=== PATIENT | female | born 1950 | race Caucasian/White ===

== ENCOUNTER 2016-07-12 06:01 | Emergency (ER) ==
--- NOTE | 2016-07-12 06:38 | PROVIDER DOCUMENTATION ---
HPI-General Adult - General Chief Complaint: Fall Stated Complaint: @0525 FALL/ FAINTED Time Seen by Provider: 07/12/16 06:16 Source: patient, family Allergies/Adverse Reactions: Patient Allergies Allergy/AdvReac Type Severity Reaction Status Date / Time Sulfa (Sulfonamide Allergy Mild RASH Verified 07/12/16 06:53 Antibiotics) Home Medications: Home Medication List Medication Instructions Recorded Confirmed Last Taken Type Hydrocodone/Acetaminophen [[place] 1 each PO Q6H PRN #20 tablet 07/12/16 Unknown Rx 5-325 Tablet] - History of Present Illness -Gen Adult Nature of Presenting Problems: states got up to take a shower this morning and felt weak and lightheaded then woke up on the floor of the tub. was home and she did not lay in the tub for long. states now with ankle pain only pt with loc pt has history of breast cancer is on meds and has completed surgery and chemo. diagnosed 3 years ago. pt also states she recently has had some sinus problems congestion cough malaise and thinks that may have contributed to it. pt is self medicating and taking benadryl for it she is not on abx and has not any fevers her pmd is dr rogers Location of Pain/Injury: reports: lower extremity Pain Radiation: reports: no radiation Quality of Pain: reports: aching Severity: reports: moderate Onset/Duration: reports: just prior to arrival Timing: reports: still present Modifying Factors: improves with: analgesics Associated Symptoms: reports: malaise, sinus congestion/drainage, syncope. denies: vomiting Similar Symptoms Previously?: No Recently seen or treated by another doctor?: No Review of Systems - Adult - REVIEW OF SYSTEMS - ADULT Constitutional: reports: see HPI Eyes: reports: no symptoms reported Ears, Nose, Mouth & Throat: reports: see HPI Cardiovascular: reports: syncope Respiratory: reports: cough. denies: excessive sputum production, shortness of breath Gastrointestinal: reports: no symptoms reported Genitourinary: reports: no symptoms reported Musculoskeletal: reports: other (ankle pain and swellling since fall this morning) Integumentary: reports: other (echymosis on left ankle) Neurological: reports: see HPI, syncope. denies: dizziness/vertigo, headache/ migraines, loss of balance, numbness, slurred speech Psychiatric: reports: no symptoms reported Endocrine: reports: no symptoms reported Hematologic/Lymphatic: reports: see HPI, other (h/o breast cancer) Allergic/Immunologic: reports: see HPI, other (sinus congestion) All Other Systems: Reviewed and Negative Past History - Adult - PAST MEDICAL HISTORY-ADULT Review of Records: reports: Old Records Reviewed, Nursing Assessment Review, Medications Reviewed Major Childhood Illnesses: reports: denies history Cardiovascular: reports: denies history Respiratory: reports: denies history Gastrointestinal: reports: denies history Musculoskeletal: reports: denies history Psychiatric: reports: denies history Endocrine/Immune: reports: denies history Other Conditions: reports: other cancer (breast) - PRIOR SURGERIES/PROCEDURES Surgical/Procedure History: reports: other (mastectomy) - FAMILY HISTORY Family History: reviewed, not pertinent - SOCIAL HISTORY Smoking: denies Alcohol Use Frequency: never Living Situation: family Physical Exam-General - PHYSICAL EXAM-ADULT Initial Vital Signs Reviewed: Yes - CONSTITUTIONAL General Appearance: appears well, alert, no apparent distress - EYES Eyes: PERRL/EOMI - HEAD, EARS, NOSE, MOUTH & THROAT HENMT: moist mucous membranes, normal ENT inspection, pharynx normal (small early echymotic area on right forehead nontender no swelling) - NECK Neck: non-tender, full range of motion, supple, normal inspection - RESPIRATORY Respiratory: chest non-tender, lungs clear, normal breath sounds, no pleuratic chest pain, no respiratory distress, no accessory muscle use - CARDIOVASCULAR Cardiovascular: normal peripheral pulses, regular rate, rhythm, no edema - GASTROINTESTINAL (ABDOMEN) Abdominal Exam: soft - LYMPHATIC Lymphatic: no adenopathy - MUSCULOSKELETAL Back Exam: normal inspection Extremity: tenderness (left medial malleolus pulses symmetrical stable ligaments cap refill less than 2 seconds distally) - SKIN Integumentary: normal color, normal turgor, warm/dry, ecchymosis (left medial ankle) - NEUROLOGIC Neurologic: grossly normal, no motor/sensory deficits - PSYCHIATRIC Psych/Mental Status: normal mood/affect, normal thought content, normal thought process Progress - PLAN OF CARE/RESULTS Progress/Plan/Lab Results: will syncope eval ct head and cspine for loc with fall. xray ankle labs orthostatic eval CT head and cspine neg. reviewed by radiology leg and ankle films positive for prox and dist fibular fracture per my review. will splint provide crutches and refer to ortho for f/u of definitive care of fracture provided by me. cxr neg per my review Laboratory Results - last 24 hr 07/12/16 07/12/16 07/12/16 06:45 06:45 06:45 WBC 7.06 RBC 4.82 Hgb 14.2 Hct 43.5 MCV 90.2 MCH 29.5 MCHC 32.6 L RDW Std Deviation 13.7 Plt Count 216 MPV 9.5 Neut % (Auto) 69.1 Lymph % (Auto) 19.8 L [place] % (Auto) 10.5 H Eos % (Auto) 0.0 Baso % (Auto) 0.6 Neut # (Auto) 4.88 Lymph # (Auto) 1.40 [place] # (Auto) 0.74 H Eos # (Auto) 0.00 Baso # (Auto) 0.04 PT INR PTT (Actin FS) Sodium 138 Potassium 3.9 Chloride 97 L Carbon Dioxide 27 Anion Gap 14 BUN 14 Creatinine 0.8 Estimated GFR/1.73 m2 > 60 BUN/Creatinine Ratio 18 Glucose 114 H Calculated Osmolality 277 Calcium 8.8 Magnesium 2.0 Total Bilirubin 0.26 AST 19 ALT 19 Alkaline Phosphatase 53 Creatine Kinase 156 Troponin T Hxj-N-Kbbqbdbncsy Pept 58 Total Protein 6.6 Albumin 3.8 Globulin 2.8 Albumin/Globulin Ratio 1.4 07/12/16 07/12/16 06:45 06:45 WBC RBC Hgb Hct MCV MCH MCHC RDW Std Deviation Plt Count MPV Neut % (Auto) Lymph % (Auto) [place] % (Auto) Eos % (Auto) Baso % (Auto) Neut # (Auto) Lymph # (Auto) [place] # (Auto) Eos # (Auto) Baso # (Auto) PT 10.1 INR 0.99 PTT (Actin FS) 52.6 H Sodium Potassium Chloride Carbon Dioxide Anion Gap BUN Creatinine Estimated GFR/1.73 m2 BUN/Creatinine Ratio Glucose Calculated Osmolality Calcium Magnesium Total Bilirubin AST ALT Alkaline Phosphatase Creatine Kinase Troponin T < 0.010 Wtu-L-Kojczxmyvxk Pept Total Protein Albumin Globulin Albumin/Globulin Ratio pt remained stable during observation time in the ED. pt with proximal and distal fibular fracture will splint educate on crutch use and refer to ortho for follow up of definitive care. pain medications offered and refused at time of arrival will dc home with pain meds as prn. pt and family express understanding and agree wiht plan Departure - Departure Time of Disposition Order: :13 DIAGNOSIS: Closed fibular fracture Qualifiers: Encounter type: initial encounter Fibula location: distal Fracture morphology: other fracture Laterality: left Qualified Code(s): S82.832A - Other fracture of upper and lower end of left fibula, initial encounter for closed fracture Fibula fracture Qualifiers: Encounter type: initial encounter Fibula location: proximal Fracture type: closed Fracture morphology: other fracture Laterality: left Qualified Code(s): S82.832A - Other fracture of upper and lower end of left fibula, initial encounter for closed fracture Disposition: HOME 01 Certified Medical Emergency: Emergent Condition: Good Additional Instructions: ED Follow Up Instructions: You have been treated by a care provider in the Emergency Department. These instructions are being provided to you so you can have an understanding of how to care for yourself upon discharge. Upon discharge from the Emergency Department, you are responsible for making arrangements for follow-up care by a physician of your choice. Take all prescribed medications as directed. Return to the Emergency Department immediately for any new or worsening symptoms. You may call the Physician Referral phone number at [phone] to obtain a list of Physicians who are taking new patients. Prescriptions: Hydrocodone/Acetaminophen [[place] 5-325 Tablet] 1 each PO Q6H PRN #20 tablet PRN Reason: Pain Referrals: Flaca Rogers MD [Primary Care Provider] - Angel Pruitt MD [STAFF PHYSICIAN] -
[2016-07-12] MEDS ORDERED: NS 500 ML IV ONE (06:41)
[2016-07-12 07:02] LABS: MANUAL DIFF NEEDED? NO
[2016-07-12 07:18] LABS: BASO% 0.6 % (0.0-0.8); HEMATOCRIT 43.5 % (37.0-47.0); HEMOGLOBIN 14.2 g/dL (12.0-16.0); LYMPH% 19.8 % (20.5-51.1); MCH 29.5 PG (27-31); MCHC 32.6 g/dL (33-37); MCV 90.2 FL (81-99); MONO# 0.74 X1000 (0.11-0.59); MONO% 10.5 % (1.7-9.3); MPV 9.5 FL (7.4-10.4); NEUT% 69.1 % (42.2-75.2); PLT 216 X1000 (130-400); RBC 4.82 XMIL (4.2-5.4)
[2016-07-12 07:32] LABS: AGAP 14; ALBUMIN 3.8 g/dL (3.5-5.0); ALKALINE PHOSPHATASE 53 U/L (32-104); BUN 14 mg/dL (8-22); CALCIUM 8.8 mg/dL (8.8-10.2); CHLORIDE 97 mmol/L (98-107); CK PROFILE 156 U/L (24-173); COSMO 277; GOT 19 U/L (10-30); GPT 19 U/L (10-36); POTASSIUM 3.9 mmol/L (3.5-5.1); SODIUM 138 mmol/L (136-145); TCO2 27 mmol/L (25-35); TOTAL BILIRUBIN 0.26 mg/dL (0.20-1.00); TOTAL PROTEIN 6.6 g/dL (6.3-8.3)
--- NOTE | 2016-07-12 07:54 | Diag Imaging Result Document ---
PROCEDURE NAME: ANKLE COMPLETE LEFT - 07/12/2016 LEFT ANKLE THREE VIEWS: FINDINGS: There is an oblique fracture through the distal fibula with several millimeters of displacement and slight angulation. The distal tibia is slightly dislocated medially from the talus. There is a tiny bone fragment from the medial malleolus. IMPRESSION: Fractures and dislocation at the ankle. MTDD
[2016-07-12 08:07] LABS: INR 0.99; PROTIME 10.1 Seconds (9.2-11.7); PTT 52.6 Seconds (22.0-36.0)
--- NOTE | 2016-07-12 08:27 | Diag Imaging Result Document ---
PROCEDURE NAME: HEAD/C-SPINE W/O CONTRAST - 07/12/2016 CT HEAD WITHOUT CONTRAST: A dose-reduction protocol was used. COMPARISON: No comparison exam. FINDINGS: There is no evidence of intracranial hemorrhage, mass effect, midline shift, or hydrocephalus. There are mild chronic-appearing microvascular ischemic changes. There is no indication of recent infarct, although acute infarcts may not be immediately visible. There is no skull fracture. There is mild paranasal sinus disease noted, primarily at the right sphenoid sinus. IMPRESSION: No visible acute intracranial abnormality. No evidence of intracranial injury. Mild paranasal sinus disease noted primarily at the right sphenoid sinus. CT CERVICAL SPINE WITHOUT CONTRAST: A dose-reduction protocol was used. Axial and reformatted sagittal and coronal images are obtained. COMPARISON: No comparison exam. FINDINGS: There is multilevel degenerative disease. There is associated large anterior osteophytes at C4-5 and C5-6. There are associated posterior osteophytes at C5-6 which produce [id number]-uv-[id number] spinal stenosis. There is no fracture identified. There is no subluxation seen. There is no precervical soft tissue swelling identified. IMPRESSION: 1. Multilevel degenerative disease. Associated [id number]-uq-czjecnza spinal stenosis at C5-6. 2. No evidence of fracture or subluxation.
--- NOTE | 2016-07-12 08:34 | Diag Imaging Result Document ---
PROCEDURE NAME: LOWER LEG-LEFT - 07/12/2016 LEFT TIBIA AND FIBULA, TWO VIEWS: FINDINGS: The current two views do not include the ankle. Discussion of the ankle was performed on the films earlier. There is a fracture of the proximal fibula with minimal displacement. No fracture to the proximal tibia. No fracture to the shafts of either the tibia or the fibula. IMPRESSION: Nondisplaced proximal fibula fracture.
--- NOTE | 2016-07-12 08:38 | Diag Imaging Result Document ---
PROCEDURE NAME: CHEST-2 VIEWS - 07/12/2016 FRONTAL AND LATERAL CHEST, TWO VIEWS: FINDINGS: There is a left-sided Port-A-Cath. No pneumothorax. There are no contusions. The mediastinum is not widened. No pleural effusions. No compressed thoracic vertebra. No infiltrates or cardiomegaly. IMPRESSION: No injury identified.
--- NOTE | 2016-07-12 09:14 | ED EKG INTERP ---
EKG Interpretation - EKG Time of EKG reading by physician:: 06:36 EKG Read and Signed by:: Josué Torres EKG Interpretation (*Must complete 3 of following elements*): Abnormal Rate: 78 Rhythm: NSR Beaver: normal QRS: normal MI Interval: normal ST Wave: non-specific ST changes Attestation - Scribe Verification/Attestation Scribe:: Caleb Carrillo Acting as Scribe for:: Josué Torres Scribe documention review:: This chart was documented by a scribe and accurately reflects the service the provider performed and the decisions made by the provider. Physician Attestation - Physician Attestation I, the provider, attest to the following statement:: Josué Torres Physician documentation Attestation:: This documentation recorded by the scribe accurately reflects the service I personally performed and the decisions made by me.
[2016-07-12 09:22] VITALS: BP 110/80
--- NOTE | 2016-07-12 09:26 | EKG Report ---
Test Performed on : 07/12/2016 06:36:03 AM Test Reason : SYNCOPE Blood Pressure : / mmHG Vent. Rate : 078 BPM Atrial Rate : 078 BPM P-R Int : 130 ms QRS Dur : 074 ms QT Int : 390 ms P-R-T Axes : 056 -09 041 degrees QTc Int : 444 ms Normal sinus rhythm. Nonspecific T wave abnormality Abnormal ECG No previous ECGs available Unconfirmed Result
== END 2016-07-12 09:21 | disposition home or self-care (01) ==
LOC: ED 06:01
DX: S82.832A Other fracture of upper and lower end of left fibula, initial encounter for closed fracture (principal); S00.83XA Contusion of other part of head, initial encounter; R55 Syncope and collapse; R42 Dizziness and giddiness; R53.1 Weakness; M25.472 Effusion, left ankle; M25.572 Pain in left ankle and joints of left foot; R53.81 Other malaise; R09.81 Nasal congestion; R05 Cough; W19.XXXA Unspecified fall, initial encounter; Z85.3 Personal history of malignant neoplasm of breast; Z90.10 Acquired absence of unspecified breast and nipple; R94.31 Abnormal electrocardiogram [ECG] [EKG]
CPT/HCPCS: 70450; 71020; 72125; 80053; 82550; 82948; 83735; 83880; 84484; 85025; 85610; 85730; 93005; J7040